=== PATIENT | male | born 1950 | race Hispanic/Latino ===

== ENCOUNTER 2017-03-19 06:47 | Day surgery (SDC) | payer MEDICARE, OTHER ==
[2017-03-19 07:03] VITALS: BMI 25.7
[2017-03-19] MEDS ORDERED: cefTRIAXone (Rocephin) 1 gm Inj ONE (07:36)
[2017-03-19 07:49] VITALS: RESP 18
[2017-03-19] MEDS ORDERED: Lactated Ringer's 1,000 ML IV ONE (08:12)
--- NOTE | 2017-03-19 08:44 | CARD ---
APPROVED REPORT EKG Measurement Heart [id number] [id number] <Conclusion> Normal sinus rhythm Minimal voltage criteria for LVH, may be normal variant Borderline ECG
[2017-03-19] MEDS ORDERED: Propofol 10 mg/ml Inj (20 ML) ONE (08:56)
[2017-03-19] MEDS ORDERED: Succinylcholine 200 mg/10 ml Inj IV ONE (08:56)
[2017-03-19] MEDS ORDERED: Midazolam 2 MG/2 ML VIAL ONE (08:56)
[2017-03-19] MEDS ORDERED: cefTRIAXone (Rocephin) 1 gm Inj IM ONE (09:05)
[2017-03-19] MEDS ORDERED: ePHEDrine 50 mg/ml Inj ONE (09:21)
[2017-03-19] MEDS ORDERED: HYDROmorphone 0.5 mg/0.5 ml ISec IVP PRN (10:22)
--- NOTE | 2017-03-19 12:28 | OP ---
PROCEDURE DATE: 03/19/2017 PREOPERATIVE DIAGNOSIS: Symptomatic BPH. POSTOPERATIVE DIAGNOSIS: Symptomatic BPH. PROCEDURE: GreenLight laser of the prostate. DESCRIPTION OF PROCEDURE: The patient was placed on the operating table in the dorsal lithotomy position. After he was given general anesthesia, the area of the groin was draped and prepped in a sterile manner. Under direct vision, I inserted a laser scope into the bladder, identified the areas of resection. Using laser fiber, I identified the distal margin of the resection with laser current and then I began to laser all the adenoma that was between there and the bladder neck. Used the maximum of 180 W power, 350,000 Bravo were used for the resection. Once he had an ample opening, blood loss was contained to less than 10 mL, I inserted a #22 three-way Mario catheter. The initial outflow was clear. The patient then was taken from the operating room in good condition. Judit Miranda MD
[2017-03-19 13:50] VITALS: BP 144/86; PULSE 86; TEMP 97.7; O2SAT 18
== END 2017-03-19 13:53 | disposition home or self-care (01) ==
LOC: H.OPSURG 06:47
PROVIDERS: ATTEND Urology
DX: N40.0 Benign prostatic hyperplasia without lower urinary tract symptoms (principal)
CPT/HCPCS: 52649; 93005; J0330; J0696; J2001; J2250; J2704; J3010; J7030; J7120

== ENCOUNTER 2017-03-23 00:57 | Emergency (ER) | payer MEDICARE, OTHER ==
[2017-03-23 00:58] VITALS: BMI 25.7
[2017-03-23 01:12] VITALS: RESP 18; TEMP 98; O2SAT 98
--- NOTE | 2017-03-23 01:28 | ED PDOC ---
HPI: Male Pain Time Seen by Provider: 03/23/17 01:01 Chief Complaint (Nursing): Male Genitourinary History Per: Patient History/Exam Limitations: no limitations Onset/Duration Of Symptoms: Hrs (4) Current Symptoms Are (Timing): Still Present Associated Symptoms: denies: Nausea, Vomiting, Diarrhea, Chest Pain Additional Complaint(s): James Stringer is a 67 year old male presenting to the ED with complaints of urinary retention x4 hours and has a past medical history of benign prostatic hyperplasia and a GreenLight prostate procedure performed by Dr. Miranda. Confirms lower abdominal discomfort and denies associated chest pain, shortness of breath, nausea, vomiting, or diarrhea. The patient states that he had an indwelling siegel until it was removed yesterday and was voiding normally until this evening. States that has been unable to void for the past 4 hours and had gross blood in his urine after his last successful void. PMD: Dr. Gerardo Morris. Past Medical History Reviewed: Historical Data, Nursing Documentation, Vital Signs Vital Signs: Last Vital Signs Temp 98.0 F 03/23/17 01:07 Pulse 96 H 03/23/17 01:07 Resp 18 03/23/17 01:07 BP 183/101 H 03/23/17 01:07 Pulse Ox 98 03/23/17 01:07 - Medical History PMH: Benign Prostatic Hyperplasia, HIV, Kidney Stones - Surgical History Surgical History: Endoscopy Comment Only: Cholecystectomy (Gallstones removed) Other surgeries: GreenLight prostate procedure - Family History Family History: States: Unknown Family Hx - Social History Current smoker - smoking cessation education provided: No Ex-Smoker (has not smoked in the last 12 months): No Alcohol: None - Home Medications Home Medications: Ambulatory Orders Medication Instructions Recorded Ciprofloxacin [Cipro] 500 mg PO BID 03/19/17 Elviteg/Cob/Emtri/Tenof Alafen 1 each PO DAILY 03/19/17 [Genvoya Tablet] Phenazopyridine [Pyridium] 200 mg PO BID 03/19/17 Tamsulosin [Flomax] 0.4 mg PO DAILY 03/19/17 - Allergies Allergies/Adverse Reactions: Allergies Allergy/AdvReac Type Severity Reaction Status Date / Time No Known Allergies Allergy Verified 03/23/17 01:07 Review of Systems Cardiovascular: Negative for: Chest Pain Respiratory: Negative for: Shortness of Breath Gastrointestinal: Positive for: Abdominal Pain (Lower). Negative for: Nausea, Vomiting, Diarrhea Genitourinary Male: Negative for: Frequency Physical Exam - Reviewed Nursing Documentation Reviewed: Yes Vital Signs Reviewed: Yes - Physical Exam Appears: Positive for: Uncomfortable Skin: Positive for: Normal Color, Warm, Dry Eye Exam: Positive for: EOMI, Normal appearance, PERRL Neck: Positive for: Normal, Painless ROM, Supple Cardiovascular/Chest: Positive for: Regular Rate, Rhythm. Negative for: Murmur Respiratory: Positive for: Normal Breath Sounds. Negative for: Respiratory Distress Gastrointestinal/Abdominal: Positive for: Tenderness (Suprapubic), Distended ( Suprapubic) Back: Positive for: Normal Inspection. Negative for: L CVA Tenderness, R CVA Tenderness, Vertebral Tenderness Extremity: Positive for: Normal ROM. Negative for: Pedal Edema, Deformity Neurologic/Psych: Positive for: Alert, Oriented - ECG O2 Sat by Pulse Oximetry: 98 (RA) Pulse Ox Interpretation: Normal Medical Decision Making Medical Decision Making: Time: 1:14 Initial Impression: 67 year old male with acute urinary retention in setting of prostate procedure Initial Plan: --Urine Culture --Siegel --Urinalysis --Reevaluation Time: 2:40 Plan: --Patient reports marked improvement with placement of siegel and diuresed 900cc of urine. Patient has been switched to a urinary leg bag and will be discharged to follow up with Dr. Miranda. Previously taking ciprofloxacin and advised to continue medication at home. There is agreement to discharge plan. Return if symptoms persist or worsen. Scribe Attestation: Documented by Jesus Lozano, acting as a scribe for Palomo Aguilar MD Provider Scribe Attestation: All medical record entries made by the Scribe were at my direction and personally dictated by me. I have reviewed the chart and agree that the record accurately reflects my personal performance of the history, physical exam, medical decision making, and the department course for this patient. I have also personally directed, reviewed, and agree with the discharge instructions and disposition. Disposition - Clinical Impression Clinical Impression: Urinary retention - Patient ED Disposition Is Patient to be Admitted: No - Disposition Referrals: Judit Miranda MD [Medical Doctor] - Gerardo Morris MD [Primary Care Provider] - Disposition Time: 02:40 Condition: STABLE Additional Instructions: Please call Dr Miranda today for follow up appointment Instructions: Urinary Leg Bag (GEN) Forms: [facility] (German)
[2017-03-23 02:26] VITALS: BP 165/82; PULSE 79
[2017-03-23 02:29] LABS: RBC URINE 8550 /hpf (0-3); WBC CLUMPS MANY /hpf; WBC URINE 549 /hpf (0-5)
[2017-03-23 02:33] LABS: URINE COLOR DARK RED (YELLOW)
[2017-03-23 02:34] LABS: URINE GLUCOSE (UA) 100 mg/dL (Normal)
[2017-03-23 02:35] LABS: URINE BILIRUBIN LARGE (NEGATIVE); URINE BLOOD LARGE (NEGATIVE); URINE KETONE 15 mg/dL (NEGATIVE); URINE PROTEIN >=300 mg/dL (NEGATIVE)
[2017-03-23 02:41] LABS: URINE BACTERIA SMALL (<OCC)
[2017-03-23 03:04] LABS: URINE LEUKOCYTE ESTERASE LARGE Leu/uL (Negative)
== END 2017-03-23 03:00 | disposition home or self-care (01) ==
LOC: H.ER 00:57
DX: N39.0 Urinary tract infection, site not specified (principal)

== ENCOUNTER 2018-05-07 17:58 | Inpatient (IN) | payer MEDICARE, OTHER ==
[2018-05-07 17:59] VITALS: BMI 25.7
[2018-05-07 20:11] LABS: BASO # 0.1 K/uL (0.0-0.2); BASO % 0.3 % (0.0-2.0); EOS # 4.1 K/uL (0.0-0.7); EOS % 19.6 % (0.0-4.0); HEMOGLOBIN 12.8 g/dL (12.0-18.0); LYMPH # 1.8 K/uL (1.0-4.3); LYMPH % 8.4 % (20.0-40.0); MEAN CELL VOLUME 91.9 fl (80.0-94.0); MEAN CORPUSCULAR HEMOGLOBIN 30.4 pg (27.0-31.0); MEAN CORPUSCULAR HGB CONC 33.1 g/dL (33.0-37.0); MEAN PLATELET VOLUME 8.7 fl (7.2-11.7); MONO # 1.7 K/uL (0.0-0.8); MONO % 8.3 % (0.0-10.0); NEUT # 13.3 K/uL (1.8-7.0); NEUT % 63.4 % (50.0-75.0); NRBC % 0.1 % (0.0-0.0); PLATELET COUNT 207 K/uL (130-400); RBC 4.22 Mil/uL (4.40-5.90); RED CELL DISTRIBUTION WIDTH 13.1 % (11.5-14.5)
[2018-05-07 20:28] LABS: ALB/GLOB RATIO 0.8 (1.0-2.1); ALBUMIN 3.5 g/dL (3.5-5.0); ALT/SGPT 24 U/L (21-72); AST/SGOT 16 U/L (17-59); BLOOD UREA NITROGEN 23 mg/dl (9-20); CALCIUM 8.7 mg/dL (8.4-10.2); GFR NON-AFRICAN AMERICAN > 60
[2018-05-07 20:40] LABS: SQUAMOUS EPITHIAL 1 /hpf (0-5); URINE BACTERIA OCC (<OCC); URINE BILIRUBIN NEGATIVE (NEGATIVE); URINE BLOOD MODERATE (NEGATIVE); URINE CLARITY CLOUDY (Clear); URINE COLOR AMBER (YELLOW); URINE GLUCOSE (UA) NEG (NEGATIVE); URINE LEUKOCYTE ESTERASE LARGE Leu/uL (Negative); URINE PROTEIN 100 mg/dL (NEGATIVE)
--- NOTE | 2018-05-07 20:41 | ED PDOC ---
HPI: Male Pain Time Seen by Provider: 05/07/18 19:28 Chief Complaint (Nursing): Male Genitourinary Chief Complaint (Provider): Scrotal Swelling History Per: Patient History/Exam Limitations: no limitations Onset/Duration Of Symptoms: Days (x3) Current Symptoms Are (Timing): Still Present Additional Complaint(s): 68 year old male with hx of HIV presents to the ED for evaluation of progressively worsening right scrotal swelling for the past three days associated with generalized weakness. Otherwise denies fever, inability to urinate, and trauma. PMD: Morris Past Medical History Reviewed: Historical Data, Nursing Documentation, Vital Signs Vital Signs: Last Vital Signs Temp 98.1 F 05/07/18 18:27 Pulse 88 05/07/18 18:27 Resp 16 05/07/18 18:27 BP 142/88 05/07/18 18:27 Pulse Ox 98 05/07/18 18:27 - Medical History PMH: Benign Prostatic Hyperplasia, HIV, Kidney Stones - Surgical History Surgical History: Endoscopy Comment Only: Cholecystectomy (Gallstones removed) Other surgeries: prostate surgery - Family History Family History: States: Unknown Family Hx - Social History Current smoker - smoking cessation education provided: No Alcohol: None Drugs: Denies - Home Medications Home Medications: Ambulatory Orders Medication Instructions Recorded Ciprofloxacin [Cipro] 500 mg PO BID 03/19/17 Elviteg/Cob/Emtri/Tenof Alafen 1 each PO DAILY 03/19/17 [Genvoya Tablet] Phenazopyridine [Pyridium] 200 mg PO BID 03/19/17 Tamsulosin [Flomax] 0.4 mg PO DAILY 03/19/17 - Allergies Allergies/Adverse Reactions: Allergies Allergy/AdvReac Type Severity Reaction Status Date / Time No Known Allergies Allergy Verified 03/23/17 01:07 Review of Systems ROS Statement: Except As Marked, All Systems Reviewed And Found Negative Constitutional: Positive for: Weakness (generalized). Negative for: Fever Genitourinary Male: Positive for: Other (right scrotal swelling) Physical Exam - Reviewed Nursing Documentation Reviewed: Yes Vital Signs Reviewed: Yes - Physical Exam Appears: Positive for: No Acute Distress Head Exam: Positive for: ATRAUMATIC, NORMOCEPHALIC Skin: Positive for: Normal Color, Warm, Dry Eye Exam: Positive for: Normal appearance Neck: Positive for: Normal, Painless ROM, Supple Cardiovascular/Chest: Positive for: Regular Rate, Rhythm Respiratory: Positive for: Normal Breath Sounds. Negative for: Respiratory Distress Gastrointestinal/Abdominal: Positive for: Normal Exam, Soft. Negative for: Tenderness Male Genital Exam: Positive for: scrotum tenderness (R) (+midly enlarged, 8x10cm in size), other (mild edema on left aspect of scrotum) Extremity: Positive for: Normal ROM Neurologic/Psych: Positive for: Alert, Oriented (x3) - Laboratory Results Result Diagrams: 05/07/18 20:01 05/07/18 20:01 - ECG O2 Sat by Pulse Oximetry: 98 (RA) Pulse Ox Interpretation: Normal Medical Decision Making Medical Decision Making: Time: 1945 Initial Impression: 68 year old male with scrotal swelling Initial Plan: --Patient declined pain medications --CMP --U-dip --Blood culture --Urine culture --Urinalysis --Testes US duplex 2057 Testes US Findings Right Testicle Measures4.8 x 3 x 3.1 cm. Normal echotexture. Increased vascularity could be due to orchitis. Right Epididymis Epididymal head measures 2.7 x 1.4 x 1.9 cm and tail measures 2.1 x 2.4 x 1.8 cm. Heterogeneous epididymis. Left Testicle Measures 4.2 x 2.6 x 2.6 cm. Normal echotexture and flow. Left Epididymis Epididymal head measures 1.5 x 1 x 1.3 cm and tail measures 2.4 x 1.3 x 1.9 cm. Heterogeneous epididymis. Hydrocele None. Varicocele None. Other Findings None. Impression 1. Bilateral heterogeneous/enlarged epididymi suggestive bilateral epididymitis. 2. Increased vascularity in the right testicle which could be due to right orchitis. 2144 Labs reviewed and significant for elevated WBC. Patient to be admitted as discussed with Dr. Miranda and Dr. Morris. Patient is in fair condition at this time with diagnosis of epididymitis and orchitis. Scribe Attestation: Documented by Lorraine Amos, acting as a scribe for Palomo Aguilar MD. Provider Scribe Attestation: All medical record entries made by the Scribe were at my direction and personally dictated by me. I have reviewed the chart and agree that the record accurately reflects my personal performance of the history, physical exam, medical decision making, and the department course for this patient. I have also personally directed, reviewed, and agree with the discharge instructions and disposition. Disposition - Clinical Impression Clinical Impression: Orchitis and epididymitis - Patient ED Disposition Is Patient to be Admitted: Yes Counseled Patient/Family Regarding: Studies Performed, Diagnosis - Disposition Disposition Time: 21:47 (admitted) Condition: FAIR - Pt Status Changed To: Hospital Disposition Of: Inpatient - Admit Certification Admit to Inpatient:: After my assessment, the patient will require hospitalization for at least two midnights. This is because of the severity of symptoms shown, intensity of services needed, and/or the medical risk in this patient being treated as an outpatient.
[2018-05-07 22:16] LABS: BANDS 3 % (0-2); BASOPHIL 1 % (0-2); EOSINOPHIL 12 % (0-7); LYMPHOCYTE 10 % (20-50); MONOCYTE 5 % (0-10); NEUTROPHIL 69 % (42-75); TOTAL CELLS COUNTED 100
[2018-05-07 22:21] LABS: ANISOCYTOSIS SLIGHT; HYPOCHROMIC SLIGHT; PLATELET ESTIMATE NORMAL (NORMAL); TOXIC GRANULATION PRESENT
[2018-05-08 06:15] LABS: MEAN CELL VOLUME 92.1 fl (80.0-94.0); MEAN CORPUSCULAR HEMOGLOBIN 30.4 pg (27.0-31.0); MEAN CORPUSCULAR HGB CONC 33.1 g/dL (33.0-37.0); RBC 4.26 Mil/uL (4.40-5.90); RED CELL DISTRIBUTION WIDTH 13.5 % (11.5-14.5); WHITE BLOOD COUNT 19.9 K/uL (4.8-10.8)
[2018-05-08 06:19] LABS: BLOOD UREA NITROGEN 21 mg/dl (9-20); CALCIUM 8.5 mg/dL (8.4-10.2); GFR NON-AFRICAN AMERICAN > 60
[2018-05-08] MEDS ORDERED: Ciprofloxacin 400mg/200ml D5W 400 MG/200 ML BAG IVPB ONE (08:33)
[2018-05-08] MEDS: Ciprofloxacin 400mg/200ml D5W 400 MG/200 ML BAG IVPB SCH ×2 (08:35→22:31)
[2018-05-08] MEDS ORDERED: [UNRECOGNIZED DRUG - OTHER] PO SCH (09:00)
--- NOTE | 2018-05-08 10:20 | US ---
Date of service: 05/07/2018 HISTORY: swelling/pain TECHNIQUE: Realtime sonography through the scrotum with color and doppler flow. COMPARISON: None Available. FINDINGS: RIGHT TESTICLE: Measures 1.3 x 3.1 x 4.8 cm. Increased flow to the right testicle consistent with acute orchitis. RIGHT EPIDIDYMIS: Epididymal head measures 2.7 x 1.4 x 1.9 cm. Enlarged, heterogeneous right epididymis consistent with epididymitis. LEFT TESTICLE: Measures 2.6 x 2.6 x 4.2 cm. Normal echotexture and flow. LEFT EPIDIDYMIS: Epididymal head measures 1.5 x 1 x 1.3 cm. Grossly unremarkable appearance with normal flow. Left epididymal tail 1.3 x 1.9 x 2.4 cm. Heterogeneous, edematous, hypervascular consistent with epididymitis. HYDROCELE: None. VARICOCELE: None. OTHER FINDINGS: Diffuse scrotal edema. IMPRESSION: Epididymitis bilaterally. Unilateral, right orchitis. Concordant findings (preliminary report) provided by ROSS GALLEGOS.
--- NOTE | 2018-05-08 11:31 | RAD ---
Date of service: 05/08/2018 PROCEDURE: CHEST RADIOGRAPH, 1 VIEW HISTORY: SEPSIS COMPARISON: None available. FINDINGS: LUNGS: Clear. PLEURA: No pneumothorax or pleural fluid seen. CARDIOVASCULAR: No aortic atherosclerotic calcification present. Cardiomegaly Mild pulmonary venous congestion-suspect. OSSEOUS STRUCTURES: Thoracic spondylosis and bilateral shoulder arthrosis. VISUALIZED UPPER ABDOMEN: Normal. OTHER FINDINGS: None. IMPRESSION: No pulmonary infiltrate/consolidation appreciated. Cardiomegaly and mild pulmonary venous congestion
--- NOTE | 2018-05-08 12:52 | CP.PCM.CON ---
History of Present Illness - History of Present Illness History of Present Illness: 68 year old male with hx of HIV presents to the ED for evaluation of progressively worsening right scrotal swelling for the past three days associated with generalized weakness. Started 2 days ago PMD in [facility] unavailable Takes HIV meds -last check undetectable with good CD4 count - Medical History PMH: Benign Prostatic Hyperplasia, HIV, Kidney Stones - Surgical History Surgical History: Endoscopy Comment Only: Cholecystectomy (Gallstones removed) Other surgeries: prostate surgery Review of Systems - Review of Systems All systems: reviewed and no additional remarkable complaints except - Constitutional Constitutional: As Per HPI, Chills - EENT Eyes: absent: As Per HPI, Blind Spots, Blurred Vision, Change in Vision, Decreased Night Vision, Diplopia, Discharge, Dry Eye, Exophthalmos, Floaters, Irritation, Itchy Eyes, Loss of Peripheral Vision, Pain, Photophobia, Requires Corrective Lenses, Sees Flashes, Spots in Vision, Tunnel Vision, Other Visual Disturbances, Loss of Vision, Other Ears: absent: As Per HPI, Decreased Hearing, Ear Discharge, Ear Pain, Tinnitus, Abnormal Hearing, Disequilibrium, Dizziness, Other Nose/Mouth/Throat: absent: As Per HPI, Epistaxis, Nasal Congestion, Nasal Discharge, Nasal Obstruction, Nasal Trauma, Nose Pain, Post Nasal Drip, Sinus Pain, Sinus Pressure, Bleeding Gums, Change in Voice, Dental Pain, Dry Mouth, Dysphagia, Halitosis, Hoarsness, Lip Swelling, Mouth Lesions, Mouth Pain, O dynophagia, Sore Throat, Throat Swelling, Tongue Swelling, Facial Pain, Neck Pain, Neck Mass, Other - Cardiovascular Cardiovascular: absent: As Per HPI, Acrocyanosis, Chest Pain, Chest Pain at Rest, Chest Pain with Activity, Claudication, Diaphoresis, Dyspnea, Dyspnea on Exertion, Edema, Irregular Heart Rhythm, Pain Radiating to Arm/Neck/Jaw, Leg Edema, Leg Ulcers, Lightheadedness, Orthopnea, Palpitations, Paroxysmal Nocturnal Dyspnea, Pedal Edema, Radiating Pain, Rapid Heart Rate, Slow Heart Rate, Syncope, Other - Respiratory Respiratory: absent: As Per HPI, Cough, Dyspnea, Hemoptysis, Dyspnea on Exertion, Wheezing, Snoring, Stridor, Pain on Inspiration, Chest Congestion, Excessive Mucous Production, Change in Mucous Color, Pain with Coughing, Other - Gastrointestinal Gastrointestinal: absent: As Per HPI, Abdominal Pain, Belching, Bloating, Change in Bowel Habits, Change in Stool Character, Coffee Ground Emesis, Constipation, Cramping, Diarrhea, Dyspepsia, Dysphagia, Early Satiety, Excessive Flatus, Fecal Incontinence, Heartburn, Hematemesis, Hematochezia, Loose Stools, Melena, Nausea, Odynophagia, Temesmus, Vomiting, Other - Genitourinary Genitourinary: As Per HPI - Musculoskeletal Musculoskeletal: absent: As Per HPI, Abnormal Gait, Arthralgias, Atrophy, Back Pain, Deformity, Joint Swelling, Limited Range of Motion, Loss of Height, Muscle Cramps, Muscle Weakness, Myalgias, Neck Pain, Numbness, Radiating Pain into Limb, Stiffness, Tingling, Other - Integumentary Integumentary: As Per HPI, Pruritus - Neurological Neurological: absent: As Per HPI, Abnormal Gait, Abnormal Hearing, Abnormal Movements, Abnormal Speech, Behavioral Changes, Burning Sensations, Confusion, Convulsions, Disequilibrium, Dizziness, Numbness, Focal Weakness, Frequent Falls, Headaches, Lack of Coordination, Loss of Vision, Memory Loss, Paresthesias, Radicular Pain, Restless Legs, Sensory Deficit, Syncope, Tingling, Tremor, Vertigo, Weakness, Other Visual Disturbances, Other - Psychiatric Psychiatric: absent: As Per HPI, Abnormal Sleep Pattern, Anhedonia, Anxiety, Auditory Hallucinations, Behavioral Changes, Change in Appetite, Change in Libido, Confusion, Depression, Difficulty Concentrating, Hallucinations, Homicidal Ideation, Hopelessness, Irritability, Memory Loss, Mood Swings, Panic Attacks, Paranoia, Suicidal Ideation, Visual Hallucinations, Tactile Hallucinations, Other - Endocrine Endocrine: absent: As Per HPI, Change in Body Appearance, Change in Libido, Cold Intolorance, Deepening of Voice, Excessive Sweating, Fatigue, Flushing, Heat Intolorance, Increase in Ring/Shoe/Hat Size, Palpitations, Polydipsia, Polyphagia, Polyuria, Other Past Patient History - Past Medical History & Family History Past Medical History?: Yes - Past Social History Smoking Status: Never Smoked - PULMONARY Hx Respiratory Disorders: No - RENAL Hx Kidney Stones: Yes - HEMATOLOGICAL/ONCOLOGICAL Hx Blood Disorders: Yes Hx Human Immunodeficiency Virus (HIV): Yes - MUSCULOSKELETAL/RHEUMATOLOGICAL Hx Falls: No - GENITOURINARY/GYNECOLOGICAL Hx Prostate Problems: Yes (BPH) Hx Urinary Tract Infection: Yes (2014) - PSYCHIATRIC Hx Substance Use: No - SURGICAL HISTORY Hx Cholecystectomy: (Gallstones removed) - ANESTHESIA Hx Anesthesia: Yes Hx Anesthesia Reactions: No Hx Malignant Hyperthermia: No Meds Allergies/Adverse Reactions: Allergies Allergy/AdvReac Type Severity Reaction Status Date / Time No Known Allergies Allergy Verified 03/23/17 01:07 - Medications Medications: Current Medications Acetaminophen (Tylenol 325mg Tab) 650 mg PO Q4 PRN PRN Reason: Fever >100.4 F Home Med (Elviteg/Cob/Emtri/Tenof Alafen [Genvoya Tablet]) 1 each PO DAILY SUSAN Ceftriaxone Sodium 1 gm/ (Sodium Chloride) 100 mls @ 100 mls/hr IVPB DAILY SUSAN; Protocol Ciprofloxacin (Cipro 400mg/200ml Dsw) 400 mg in 200 mls @ 200 mls/hr IVPB Q12 SUSAN; Protocol Last Admin: 05/08/18 08:35 Dose: 200 mls/hr Ibuprofen (Motrin Tab) 600 mg PO Q12 SUSAN Physical Exam - Constitutional Appears: Non-toxic, Chronically Ill - Head Exam Head Exam: ATRAUMATIC, NORMAL INSPECTION, NORMOCEPHALIC - Eye Exam Eye Exam: PERRL. absent: Scleral icterus - ENT Exam ENT Exam: Mucous Membranes Dry, Normal External Ear Exam - Neck Exam Neck exam: Negative for: Lymphadenopathy - Respiratory Exam Respiratory Exam: Decreased Breath Sounds, Clear to Auscultation Bilateral - Cardiovascular Exam Cardiovascular Exam: REGULAR RHYTHM, +S1, +S2 - GI/Abdominal Exam GI & Abdominal Exam: Diminished Bowel Sounds, Soft. absent: Tenderness - Rectal Exam Rectal Exam: Deferred - Exam Exam: Scrotal Swelling, Testicular Tenderness - Extremities Exam Extremities exam: Negative for: pedal edema - Back Exam Back exam: absent: CVA tenderness (L), CVA tenderness (R), paraspinal tenderness - Neurological Exam Neurological exam: Alert, CN II-XII Intact, Oriented x3, Reflexes Normal - Psychiatric Exam Psychiatric exam: Depressed - Skin Skin Exam: Dry Results - Vital Signs Recent Vital Signs: Last Vital Signs Temp 97 F L 05/08/18 08:21 Pulse 89 05/08/18 08:21 Resp 19 05/08/18 08:21 BP 140/75 05/08/18 08:21 Pulse Ox 96 05/08/18 05:45 - Labs Result Diagrams: 05/08/18 05:45 05/08/18 05:45 Labs: Laboratory Results - last 24 hr 05/07/18 05/07/18 05/07/18 20:01 20:01 20:24 WBC 21.0 H D RBC 4.22 L Hgb 12.8 Hct 38.8 MCV 91.9 MCH 30.4 MCHC 33.1 RDW 13.1 Plt Count 207 D MPV 8.7 Neut % (Auto) 63.4 Lymph % (Auto) 8.4 L [place] % (Auto) 8.3 Eos % (Auto) 19.6 H Baso % (Auto) 0.3 Neut # (Auto) 13.3 H Lymph # (Auto) 1.8 [place] # (Auto) 1.7 H Eos # (Auto) 4.1 H Baso # (Auto) 0.1 Neutrophils % (Manual) 69 Band Neutrophils % 3 H Lymphocytes % (Manual) 10 L Monocytes % (Manual) 5 Eosinophils % (Manual) 12 H Basophils % (Manual) 1 Toxic Granulation Present Platelet Estimate Normal Hypochromasia (manual) Slight Anisocytosis (manual) Slight ESR Sodium 135 Potassium 3.8 Chloride 102 Carbon Dioxide 24 Anion Gap 13 BUN 23 H Creatinine 0.9 Est GFR ( Amer) > 60 Est GFR (Non-Af Amer) > 60 Random Glucose 128 H Lactic Acid Calcium 8.7 Total Bilirubin 0.5 AST 16 L ALT 24 Alkaline Phosphatase 77 Total Protein 8.1 Albumin 3.5 D Globulin 4.6 H Albumin/Globulin Ratio 0.8 L Urine Color [place] Urine Clarity Cloudy Urine pH 5.0 Ur Specific [place] 1.027 Urine Protein 100 Urine Glucose (UA) Neg Urine Ketones Negative Urine Blood Moderate Urine Nitrate Negative Urine Bilirubin Negative Urine Urobilinogen 1.0 Ur Leukocyte Esterase Large Urine RBC (Auto) 52 H Urine Microscopic WBC 549 H Ur Squamous Epith Cells 1 Urine Bacteria Occ H Hyaline Casts 6-10 H 05/07/18 05/08/18 05/08/18 22:36 05:45 05:45 WBC 19.9 H RBC 4.26 L Hgb 13.0 Hct 39.2 MCV 92.1 MCH 30.4 MCHC 33.1 RDW 13.5 Plt Count 217 MPV Neut % (Auto) Lymph % (Auto) [place] % (Auto) Eos % (Auto) Baso % (Auto) Neut # (Auto) Lymph # (Auto) [place] # (Auto) Eos # (Auto) Baso # (Auto) Neutrophils % (Manual) Band Neutrophils % Lymphocytes % (Manual) Monocytes % (Manual) Eosinophils % (Manual) Basophils % (Manual) Toxic Granulation Platelet Estimate Hypochromasia (manual) Anisocytosis (manual) ESR 84 H Sodium 135 Potassium 4.2 Chloride 103 Carbon Dioxide 25 Anion Gap 11 BUN 21 H Creatinine 0.8 Est GFR ( Amer) > 60 Est GFR (Non-Af Amer) > 60 Random Glucose 99 Lactic Acid 0.6 L Calcium 8.5 Total Bilirubin AST ALT Alkaline Phosphatase Total Protein Albumin Globulin Albumin/Globulin Ratio Urine Color Urine Clarity Urine pH Ur Specific [place] Urine Protein Urine Glucose (UA) Urine Ketones Urine Blood Urine Nitrate Urine Bilirubin Urine Urobilinogen Ur Leukocyte Esterase Urine RBC (Auto) Urine Microscopic WBC Ur Squamous Epith Cells Urine Bacteria Hyaline Casts Assessment & Plan (1) Orchitis and epididymitis Status: Acute (2) HIV (human immunodeficiency virus infection) Status: Acute (3) Tinea cruris due to trichophyton rubrum Status: Acute (4) Grief reaction Status: Acute - Assessment and Plan (Free Text) Assessment: cont iv antibiotics, eval restart HAART Rx check T cells and viral load await cultures
[2018-05-08] MEDS: cefTRIAXone 2 GM in Sodium Chloride 0.9% 100 ML IVPB SCH (17:05)
[2018-05-08] MEDS: Emtricitabine-Tenofovir 200 mg-300 mg Tab PO SCH (17:06)
--- NOTE | 2018-05-08 18:43 | HP ---
HISTORY OF PRESENT ILLNESS: Mr. Stringer is a 68-year-old male who was admitted via the emergency room because of scrotal swelling and pain for the past 3 days prior to presentation. He denies dysuria, fever or chills. He had been taking [id number] Advil with no relief. PAST MEDICAL HISTORY: He has a past medical history of HIV infection, benign prostatic hypertrophy, and kidney stones. FAMILY HISTORY: Noncontributory. SOCIAL HISTORY: Socially, he does not smoke, does not use drugs. REVIEW OF SYSTEMS: Essentially unremarkable. He is noncompliant to follow up for therapy in the past. PHYSICAL EXAMINATION: GENERAL: The patient is alert and oriented, appears to be uncomfortable because of scrotal pain. He is also upset because he has to go to a in [place] indicating he has a in the family. VITAL SIGNS: Remarkable for blood pressure of 149/79, pulse of 84, respiratory rate is 20. He is afebrile. O2 sat 96% on room air. SKIN: Shows fair turgor. HEENT: Pupils equal and reactive to light and accommodation. JVP flat. Mouth shows fair hygiene. LUNGS: Clear. HEART: Regular. No murmurs or gallop. ABDOMEN: Soft, nontender, no organomegaly. EXTREMITIES: Shows no edema or cyanosis. GENITOURINARY: There is definite scrotal swelling with severe tenderness and erythema. No penile discharge. LABORATORY DATA: WBC 21,000, hemoglobin 12.8, platelet count of 207,000, sed rate 84, bands of 3, lymphocytes 10. Sodium 135, potassium 4.2, BUN 11, creatinine 0.8, serum glucose 99. Testicular ultrasound done, official report pending. IMPRESSION: Epididymal orchitis with cellulitis of scrotum, history of human immunodeficiency virus infection, history of renal calculi in the past, history of benign prostatic hypertrophy, and history of noncompliance to followup. PLAN: Intravenous antibiotics, analgesics for pain, Infectious Disease evaluation, we would also obtain results of testicular ultrasound and chest x-ray. Further therapy will depend on findings. Gerardo Morris MD
--- NOTE | 2018-05-08 20:47 | CARD ---
APPROVED REPORT Date of service: 05/08/2018 EKG Measurement Heart [id number] OH [id number] <Conclusion> Normal sinus rhythm LVH Abnormal ECG
[2018-05-08] MEDS: Mycolog II OINT TOP SCH (23:37)
[2018-05-09 06:01] LABS: BASO # 0.1 K/uL (0.0-0.2); BASO % 0.5 % (0.0-2.0); EOS # 5.3 K/uL (0.0-0.7); EOS % 37.4 % (0.0-4.0); HEMOGLOBIN 12.9 g/dL (12.0-18.0); LYMPH # 1.4 K/uL (1.0-4.3); LYMPH % 9.8 % (20.0-40.0); MEAN CELL VOLUME 91.7 fl (80.0-94.0); MEAN CORPUSCULAR HGB CONC 33.9 g/dL (33.0-37.0); MEAN PLATELET VOLUME 8.2 fl (7.2-11.7); MONO # 1.1 K/uL (0.0-0.8); MONO % 8.1 % (0.0-10.0); NEUT # 6.2 K/uL (1.8-7.0); NEUT % 44.2 % (50.0-75.0); PLATELET COUNT 232 K/uL (130-400); RBC 4.16 Mil/uL (4.40-5.90); RED CELL DISTRIBUTION WIDTH 13.4 % (11.5-14.5); WHITE BLOOD COUNT 14.1 K/uL (4.8-10.8)
[2018-05-09] MEDS: cefTRIAXone 2 GM in Sodium Chloride 0.9% 100 ML IVPB SCH (09:02)
[2018-05-09] MEDS: Emtricitabine-Tenofovir 200 mg-300 mg Tab PO SCH (09:03)
[2018-05-09 09:08] VITALS: BP 173/99; PULSE 82; RESP 20; TEMP 97.6; O2SAT 99
[2018-05-09] MEDS: Mycolog II OINT TOP SCH (09:14)
--- NOTE | 2018-05-09 09:25 | CP.PCM.DIS ---
Provider - Provider Date of Admission: 05/07/18 21:21 Attending physician: Gerardo Morris MD Consults: 05/07/18 21:26 Urology Consult Stat Comment: Consulting Provider: Judit Miranda Consulting Physician: Judit Miranda Reason for Consult: orchitis/epididymitis 05/07/18 23:52 Infectious Disease Consult Routine Comment: Consulting Provider: Anam Abdullahi Consulting Physician: Anam Abdullahi Reason for Consult: orchitis/epididymitis Time Spent in preparation of Discharge (in minutes): 30 Diagnosis - Discharge Diagnosis (1) Grief reaction Status: Acute (2) HIV (human immunodeficiency virus infection) Status: Acute (3) Orchitis and epididymitis Status: Acute (4) Tinea cruris due to trichophyton rubrum Status: Acute Hospital Course - Lab Results Lab Results: Micro Results 05/07/18 20:24 Urine Urine Culture - Final No Growth (<1,000 CFU/ML) 05/07/18 19:58 Blood Blood Culture - Preliminary NO GROWTH AFTER 24 HOURS 05/07/18 20:30 Blood Blood Culture - Preliminary NO GROWTH AFTER 24 HOURS Most Recent Lab Values WBC 14.1 K/uL (4.8-10.8) H 05/09/18 05:45 RBC 4.16 Mil/uL (4.40-5.90) L 05/09/18 05:45 Hgb 12.9 g/dL (12.0-18.0) 05/09/18 05:45 Hct 38.1 % (35.0-51.0) 05/09/18 05:45 MCV 91.7 fl (80.0-94.0) 05/09/18 05:45 MCH 31.0 pg (27.0-31.0) 05/09/18 05:45 MCHC 33.9 g/dL (33.0-37.0) 05/09/18 05:45 RDW 13.4 % (11.5-14.5) 05/09/18 05:45 Plt Count 232 K/uL (130-400) 05/09/18 05:45 MPV 8.2 fl (7.2-11.7) 05/09/18 05:45 Neut % (Auto) 44.2 % (50.0-75.0) L 05/09/18 05:45 Lymph % (Auto) 9.8 % (20.0-40.0) L 05/09/18 05:45 Aiken % (Auto) 8.1 % (0.0-10.0) 05/09/18 05:45 Eos % (Auto) 37.4 % (0.0-4.0) H 05/09/18 05:45 Baso % (Auto) 0.5 % (0.0-2.0) 05/09/18 05:45 Neut # (Auto) 6.2 K/uL (1.8-7.0) 05/09/18 05:45 Lymph # (Auto) 1.4 K/uL (1.0-4.3) 05/09/18 05:45 Aiken # (Auto) 1.1 K/uL (0.0-0.8) H 05/09/18 05:45 Eos # (Auto) 5.3 K/uL (0.0-0.7) H 05/09/18 05:45 Baso # (Auto) 0.1 K/uL (0.0-0.2) 05/09/18 05:45 Neutrophils % (Manual) 69 % (42-75) 05/07/18 20:01 Band Neutrophils % 3 % (0-2) H 05/07/18 20:01 Lymphocytes % (Manual) 10 % (20-50) L 05/07/18 20:01 Monocytes % (Manual) 5 % (0-10) 05/07/18 20:01 Eosinophils % (Manual) 12 % (0-7) H 05/07/18 20:01 Basophils % (Manual) 1 % (0-2) 05/07/18 20:01 Toxic Granulation Present 05/07/18 20:01 Platelet Estimate Normal (NORMAL) 05/07/18 20:01 Hypochromasia (manual) Slight 05/07/18 20:01 Anisocytosis (manual) Slight 05/07/18 20:01 ESR 84 mm/hr (0-20) H 05/08/18 05:45 Sodium 135 mmol/l (132-148) 05/08/18 05:45 Potassium 4.2 MMOL/L (3.6-5.0) 05/08/18 05:45 Chloride 103 mmol/L (98-107) 05/08/18 05:45 Carbon Dioxide 25 mmol/L (22-30) 05/08/18 05:45 Anion Gap 11 (10-20) 05/08/18 05:45 BUN 21 mg/dl (9-20) H 05/08/18 05:45 Creatinine 0.8 mg/dl (0.8-1.5) 05/08/18 05:45 Est GFR ( Amer) > 60 05/08/18 05:45 Est GFR (Non-Af Amer) > 60 05/08/18 05:45 Random Glucose 99 mg/dL (75-110) 05/08/18 05:45 Lactic Acid 0.6 MMOL/L (0.7-2.1) L 05/07/18 22:36 Calcium 8.5 mg/dL (8.4-10.2) 05/08/18 05:45 Total Bilirubin 0.5 mg/dl (0.2-1.3) 05/07/18 20:01 AST 16 U/L (17-59) L 05/07/18 20:01 ALT 24 U/L (21-72) 05/07/18 20:01 Alkaline Phosphatase 77 U/L (38-126) 05/07/18 20:01 Total Protein 8.1 G/DL (6.3-8.2) 05/07/18 20:01 Albumin 3.5 g/dL (3.5-5.0) D 05/07/18 20:01 Globulin 4.6 gm/dL (2.2-3.9) H 05/07/18 20:01 Albumin/Globulin Ratio 0.8 (1.0-2.1) L 05/07/18 20:01 Urine Color Venessa (YELLOW) 05/07/18 20:24 Urine Clarity Cloudy (Clear) 05/07/18 20:24 Urine pH 5.0 (5.0-8.0) 05/07/18 20:24 Ur Specific Griffin 1.027 (1.003-1.030) 05/07/18 20:24 Urine Protein 100 mg/dL (NEGATIVE) 05/07/18 20:24 Urine Glucose (UA) Neg mg/dL (NEGATIVE) 05/07/18 20:24 Urine Ketones Negative mg/dL (NEGATIVE) 05/07/18 20:24 Urine Blood Moderate (NEGATIVE) 05/07/18 20:24 Urine Nitrate Negative (NEGATIVE) 05/07/18 20:24 Urine Bilirubin Negative (NEGATIVE) 05/07/18 20:24 Urine Urobilinogen 1.0 mg/dL (0.2-1.0) 05/07/18 20:24 Ur Leukocyte Esterase Large Dayami/uL (Negative) 05/07/18 20:24 Urine RBC (Auto) 52 /hpf (0-3) H 05/07/18 20:24 Urine Microscopic WBC 549 /hpf (0-5) H 05/07/18 20:24 Ur Squamous Epith Cells 1 /hpf (0-5) 05/07/18 20:24 Urine Bacteria Occ (<OCC) H 05/07/18 20:24 Hyaline Casts 6-10 /hpf (0-2) H 05/07/18 20:24 - Hospital Course Hospital Course: SCROTAL EDEMA AND PAIN IMPROVED URINATION--NORMAL Discharge Exam - Head Exam Head Exam: ATRAUMATIC, NORMAL INSPECTION, NORMOCEPHALIC - Eye Exam Eye Exam: EOMI, Normal appearance, PERRL Pupil Exam: NORMAL ACCOMODATION, PERRL - GI/Abdominal Exam GI & Abdominal Exam: Normal Bowel Sounds - Rectal Exam Rectal Exam: NORMAL INSPECTION - Exam Exam: Scrotal Swelling - Neurological Exam Neurological exam: Alert, CN II-XII Intact, Normal Gait, Oriented x3, Reflexes Normal - Psychiatric Exam Psychiatric exam: Normal Affect, Normal Mood - Skin Skin Exam: Dry, Intact, Normal Color, Warm Discharge Plan - Follow Up Plan Condition: FAIR Disposition: HOME/ ROUTINE Additional Instructions: PT WANTS TO BE DISCHARGED IN ORDER TO ATTEND HIS [facility] IN [place] TODAY WILL DISCHARGE ON CIPRO AND MOTRIN
[2018-05-09] MEDS: Ciprofloxacin 400mg/200ml D5W 400 MG/200 ML BAG IVPB SCH (10:11)
[2018-05-09 12:25] LABS: BASOPHIL 1 % (0-2); EOSINOPHIL 32 % (0-7); LYMPHOCYTE 9 % (20-50); MONOCYTE 5 % (0-10); NEUTROPHIL 52 % (42-75); PLATELET ESTIMATE NORMAL (NORMAL); TOTAL CELLS COUNTED 100
[2018-05-09 13:19] LABS: BANDS 1 % (0-2)
[2018-05-09 18:10] LABS: % CD4 (T HELPER CELL) 33 Percent (30-61); % CD8 (SUPPRESSOR T CELL) 45 Percent (12-42); ABSOLUTE CD4 CELLS 283 Cells/mcL (490-1740); ABSOLUTE CD8 CELLS 395 Cells/mcL (180-1170); ABSOLUTE LYMPHOCYTES 871 Cells/mcL (850-3900); HELPER/SUPPRESSOR RATIO 0.72 Ratio (0.86-5.00)
== END 2018-05-09 11:34 | disposition home or self-care (01) | DRG 728 ==
LOC: H.ER 17:58 → H.ERHOLD 21:21 → H.MEDSURG1 05-08 17:40
PROVIDERS: ADMIT Internal Medicine Pulmonary Disease; ATTEND Internal Medicine Pulmonary Disease
DX: N45.3 Epididymo-orchitis (principal); B35.6 Tinea cruris; N50.89 Other specified disorders of the male genital organs; Z21 Asymptomatic human immunodeficiency virus [HIV] infection status; F43.20 Adjustment disorder, unspecified; N40.0 Benign prostatic hyperplasia without lower urinary tract symptoms; Z91.19 Patient's noncompliance with other medical treatment and regimen; Z87.440 Personal history of urinary (tract) infections; Z87.442 Personal history of urinary calculi